=== PATIENT | female | born 1955 | race Caucasian/White ===

== ENCOUNTER 2019-01-29 12:56 | Emergency (ER) | payer OTHER ==
[~2019-01-29] VITALS: Ht 157.5 cm; Wt 81.8 kg
[2019-01-29 13:06] VITALS: BP 129/66; PULSE 86; RESP 20; Ht 157.5 cm; Wt 81.8 kg
[2019-01-29] MEDS ORDERED: HYDROCODONE/APAP (5/325) TAB PO ONE (14:30)
--- NOTE | 2019-01-29 14:33 | ERD ---
ER Documentation Chief Complaint Chief Complaint left leg pain x 1 year HPI 63-year-old female with no significant past medical history presenting to the emergency department complaining of pain behind her left knee With radiation down her leg for the past 1 year but significantly worsening over the past 2 days. She reports constant, 10/10 pain which is worse with walking and movement. She tried meloxicam today at home without significant relief. She denies any falls, trauma, or other symptoms or injuries at this time. ROS All systems reviewed and are negative except as per history of present illness. Medications Home Meds Active Scripts Ibuprofen* (Motrin*) 600 Mg Tab, 600 MG PO Q6, #20 TAB Prov:DAVID GALEAS PA-C 01/29/19 Cyclobenzaprine Hcl* (Cyclobenzaprine Hcl*) 10 Mg Tablet, 10 MG PO TID, #15 TAB Prov:DAVID GALEAS PA-C 01/29/19 Allergies Allergies: Coded Allergies: No Known Allergy (Unverified , 01/29/19) PMhx/Soc Hx Miscellaneous Medical Probl: Yes (HTN, DYSLIPIDEMIA) Hx Alcohol Use: No Hx Substance Use: No Hx Tobacco Use: No FmHx Family History: No diabetes Physical Exam Vitals Vital Signs Date Temp Pulse Resp B/P (MAP) Pulse Ox O2 O2 Flow FiO2 Time Delivery Rate 01/29/19 97.6 86 20 129/66 98 13:06 (87) Physical Exam Const: No acute distress Head: Atraumatic Eyes: Normal Conjunctiva ENT: Normal External Ears, Nose and Mouth. Neck: Full range of motion. No meningismus. Resp: Clear to auscultation bilaterally Cardio: Regular rate and rhythm, no murmurs Skin: No petechiae or rashes Back: No midline or flank tenderness Ext: Tenderness palpation of the left posterior knee with limited range of mo tion secondary to pain. There is no obvious joint effusion. No tenderness palpation of the anterior left knee. Patient is neurovascularly intact to the left lower extremity. Neur: Awake and alert Psych: Normal Mood and Affect Results 24 hrs Current Medications Medications Dose Sig/Saurav Start Time Status Last (Trade) Ordered Route PRN Stop Time Admin Dose Reason Admin 1 tab ONCE ONCE 01/29/19 DC 01/29/19 Acetaminophen PO 14:30 14:32 / 01/29/19 14:31 Hydrocodone Bitart ([place] (5/325)) 10 mg ONCE ONCE 01/29/19 DC 01/29/19 Dexamethasone IM 16:00 16:02 (Decadron) 01/29/19 16:01 Ketorolac 30 mg ONCE STAT 01/29/19 DC 01/29/19 Tromethamine IM 15:56 16:02 (Toradol) 01/29/19 15:57 [place] [id number] Radiology Main Line: [phone] DIAGNOSTIC IMAGING REPORT Patient: KALLIE FLANAGAN : 1955 Age: 63 Sex: F MR #: [id number] DOS: 01/29/19 0000 Ordering MD: DAVID GALEAS PA-C Location: [facility] BEDS AT THE [facility] Room/Bed: PROCEDURE: US Lower extremity Venous. CLINICAL INDICATION: Left lower extremity pain TECHNIQUE: Multiple sonographic images of the left lower extremity deep venous system were obtained utilizing grayscale, color-flow, compressive sonography and doppler imaging with augmentation. The images were reviewed on a PACS workstation. COMPARISON: None FINDINGS: There is normal compressibility and flow within the left common femoral, deep femoral, superficial femoral and popliteal veins. The deep veins of the calf were incompletely visualized. IMPRESSION: No sonographic evidence for deep venous thrombosis. .Ishan Forbes MD, MD Date Time Electronically viewed and signed by .Ishan Forbes MD, MD on 01/29/2019 15:44 .A/ CC: DAVID GALEAS PA-C [id number] [place] [id number] Radiology Main Line: [phone] DIAGNOSTIC IMAGING REPORT Patient: KALLIE FLANAGAN : 1955 Age: 63 Sex: F MR #: [id number] DOS: 01/29/19 0000 Ordering MD: DAVID GALEAS PA-C Location: [facility] BEDS AT THE [facility] Room/Bed: PROCEDURE: CR Left Knee CLINICAL INDICATION: Pain TECHNIQUE: An AP, tunnel, and an oblique radiographs were submitted. COMPARISON: None FINDINGS: Osseous Structures: The osseous elements appear well mineralized and intact. Joint Spaces: There is minimal degenerative arthrosis seen about the femoral tibial joint space. No joint effusion is identified. Soft Tissues: The soft tissues appear unremarkable. IMPRESSION: 1. Minimal degenerative arthrosis seen about the femoral tibial joint space. No effusion is evident. 2. Otherwise, unremarkable left knee series. Physician Ursula Date Time Electronically viewed and signed by Physician Ursula on 01/29/2019 15:10 RH/ CC: DAVID GALEAS PA-C [phone] Procedures/MDM 63-year-old female presenting to the emergency department with signs and sy mptoms most consistent with left low back pain with sciatica. Venous Doppler of the left lower extremity revealed no significant acute abnormalities. X-ray of the left knee revealed no significant acute abnormalities. Patient's extremity symptoms have stabilized while they have been evaluated in the department and are appropriate for outpatient follow up. No evidence of compartment syndrome, neurologic injury, vascular injury, open joint, open fracture, tendon laceration, or foreign body. Patient's musculoskeletal symptoms have stabilized while they have been evaluated in the department and are appropriate for outpatient work up. No evidence of cauda equina, cord compression, infiltrative, or infectious etiology. No evidence of life-threatening pathology at time of discharge. Pt/family in agreement with discharge plan/diagnosis. Pt/family advised to return immediately with any new or worsening symptoms. Follow-up with primary care physician within the next 1-2 days. Disclaimer: Inadvertent spelling and grammatical errors are likely due to EHR/dictation software use and do not reflect on the overall quality of patient care. Also, please note that the electronic time recorded on this note does not necessarily reflect the actual time of the patient encounter. Departure Diagnosis: Primary Impression: Pain of left leg Condition: DAVID Tsai PA-C Jan 29, 2019 14:33
[2019-01-29] MEDS ORDERED: CYCL10TA7 PO (15:48)
[2019-01-29] MEDS ORDERED: IBUP-1542 PO (15:48)
[2019-01-29] MEDS ORDERED: KETOROLAC 30 MG INJ IM STA (15:56)
[2019-01-29] MEDS ORDERED: DEXAMETHASONE 10 MG/ML 1 ML INJ IM ONE (16:00)
== END 2019-01-29 16:17 | disposition home or self-care (01) ==
LOC: FTE 12:56
DX: M79.605 Pain in left leg (principal); I10 Essential (primary) hypertension
CPT/HCPCS: 73562; 93971; 96372; J1100; J1885; Z7502; Z7610